=== PATIENT | female | born 1940 | race Caucasian/White ===

== ENCOUNTER 2022-05-31 11:59 | Emergency (ER) | payer MEDICARE, OTHER ==
[2022-05-31] MEDS ORDERED: Sodium Chloride 0.9% 10 ML Syringe FLUSH PRN ×2 (12:24→14:03)
[2022-05-31] MEDS ORDERED: Albuterol/Ipratropium 3.0-0.5 MG/3 ML Neb Soln NEB ONE ×4 (12:24→22:55)
[2022-05-31] MEDS ORDERED: methylPREDNISolone Sodium Succinate 125 MG/2 ML SDV IVPUSH ONE (12:24)
[2022-05-31] MEDS ORDERED: Sodium Chloride 0.9% 500 ML IV ONE (14:01)
[2022-05-31] MEDS ORDERED: Iopamidol 755 Mg/ML 100 ML Bottle IVPUSH ONE (14:03)
[2022-05-31] MEDS ORDERED: Sodium Chloride 0.9% 100 ML IV SCH (14:15)
[2022-05-31] MEDS ORDERED: cefTRIAXone 1 GM in Sodium Chloride 0.9% 100 ML IV ONE (15:24)
[2022-05-31] MEDS ORDERED: Furosemide 20 MG/2 ML VIAL IVPUSH ONE (20:16)
[2022-05-31] MEDS ORDERED: Albuterol/Ipratropium 3.0-0.5 MG/3 ML Neb Soln ONE (22:55)
== END 2022-05-31 23:15 ==
LOC: JD.ED 11:59
DX: J18.9 Pneumonia, unspecified organism (principal); J91.8 Pleural effusion in other conditions classified elsewhere; R74.8 Abnormal levels of other serum enzymes; Z20.822 Contact with and (suspected) exposure to COVID-19; Z79.899 Other long term (current) drug therapy; Z79.82 Long term (current) use of aspirin
CPT/HCPCS: 36415; 36600; 71045; 71045-26; 71275; 71275-26; 80053; 81001; 82803; 83605; 83735; 83880; 84484; 85025; 85379; 86140; 87040; 93005; 94640; 96361; 96365; 96375; 99285; 99285-25; J0696; J1940; J2930; J3490; J7030; J7620-GY; Q9967; U0002